=== PATIENT | female | born 2000 | race African-American/Black ===

== ENCOUNTER → 2022-11-26 | Outpatient (CLI) | payer BC | LOC: LABNPT 15:28 | PROVIDERS: ATTEND Nurse Practitioner Women's Health | DX: O13.9 Gestational [pregnancy-induced] hypertension without significant proteinuria, unspecified trimester (principal); Z3A.00 Weeks of gestation of pregnancy not specified | CPT/HCPCS: 82570; 84156 ==

== ENCOUNTER 2023-03-31 06:15 | Inpatient (IN) | payer BC ==
[2023-03-31] VITALS (40 sets, daily range): BP systolic 113–150; BP diastolic 63–100
[~2023-03-31] VITALS: Ht 162.6 cm; Wt 109.0 kg
--- OUTSIDE RECORDS SUMMARY | 2023-03-31 06:19 | XMS REPORT ---
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 confirmed [id number] ALLERGIES No Known Allergies ENCOUNTERS from 1998 to 2023-02-28 Encounter Location Date Provider Diagnosis [facility] [address] [id number] [place] [address] Feb, INES TOWNSEND Encounter for initia l prescription of contraceptive pills Z30.011 and Screening for STD (sexually transmitted disease) Z11.3 IMMUNIZATIONS Vaccine Route Administration Date Status 1st Dose HRSA MODERNA, COVID -19, 0.5mL Unknown July 15, 2020 Administered 2nd Dose HRSA MODERNA, COVID -19, 0.5mL Unknown August 13, 2020 Administered PRIVATE FLU 23-24 (FLULAVAL) 6MO & UP IM Intramuscular Jan 29, 2023 Administered PRIVATE GARDASIL 9 (HPV) IM Intramuscular Apr 12, 2021 Administered PRIVATE GARDASIL 9 (HPV) IM Intramuscular Mar 13, 2021 Administered SOCIAL HISTORY Sex Assigned At : Social History Observation Description Sex Assigned At Unknown Alcohol Screen (Audit-C) Question Answer Notes Did you have a drink containing alcohol in the p ast year? No Points 0 Interpretation Negative PHQ2 Question Answer Notes In the last 2 weeks, how oft en have you had little interest or pleasure in doing things? Not at all In the last 2 weeks, how oft en have you been feeling down, depressed, or hopeless? Not at all Total PHQ2 Score 0 Tobacco use other than smoking: Question Answer Notes Are you an other tobacco user? No REASON FOR REFERRAL No Information VITAL SIGNS Height 64.25 in Feb, Weight 191.7 lbs Feb, Weight-kg 86.95 kg Feb, Temperature 97.3 degrees Fahrenheit Feb, Heart Rate 98 bpm Feb, Respiratory Rate 18 bpm Feb, Oximetry 99 % Feb, BMI 32.65 kg/m2 Feb, Blood pressure systolic 120 mmHg Feb, Blood pressure diastolic 66 mmHg Feb, MEDICATIONS Medication SIG (Take, Route, Fr equency, Duration) Notes Start Date End Date Status Amoxicillin 875 MG 1 tablet Orally Twic e a day for 7 days Dec, Active metroNIDAZOLE 500 MG 1 tablet Orally Twi ce a day for 7 days Dec, Active REASON FOR VISIT full panel std check, She is not having any symptoms, just wants to be checked--NGUYỄN baca MEDICAL (GENERAL) HISTORY Type Description Date Medical History Unspecified asthma Medical History hypoglycemic Surgical History tonsillectomy and adenoidectomy 2019 Surgical History dental surgeries Hospitalization History pneumonia 7 MENTAL STATUS No Information ASSESSMENTS Encounter Date Diagnosis Assessment Notes Treatment Notes Treatment Clinical Notes Feb, Screening for STD (sexually transmitted disease) (ICD-10 - Z11.3) Recommend using condoms to prevent spread of STDs Feb, Encounter for initial prescription of contraceptive pills (ICD-10 - Z30.011) Discussed benefits and risks of combined estrogen/progestero ne contraceptive including but not limited to blood clot, increased blood pressure, moodiness, breast tenderness, nausea, irregular bleeding. Discussed the only 100% effective method of contraception is abstinence. Discussed that control does not protect against STI and the only 100% effective STI prevention is abstinence, if sexually active outside of stable one partner relationship, recommend condom use. Use backup control, such as a condom, or don't have intercourse for 7 days after you start your pills. Take your pills every day, at about the same time of day. To help yourself do this, try to take them when you do something else every day, such as brushing your teeth. What if you forget to take a pill? Always read the label for specific instructions, or call your doctor. Here are some basic guidelines: If you miss 1 hormone pill, take it as soon as you remember. Ask your doctor if you may need to use a backup control method, such as a condom, or not have intercourse. If you miss 2 or more hormone pills, take one as soon as you remember you forgot them. Then read the pill label or call your doctor about instructions on how to take your missed pills. Use a backup method of control or don't have intercourse for 7 days. is more likely if you miss more than 1 pill. If you had intercourse, you can use emergency contraception to help prevent . You can also get emergency contraceptive pills without a prescription at most drugstores. What else do you need to know? The pill can have side effects. You may have very light or skipped periods. You may have bleeding between periods (spotting). This usually decreases after 3 to 4 months. You may have mood changes, less interest in sex, or weight gain. The pill may reduce acne, heavy bleeding and cramping, and symptoms of premenstrual syndrome. Check with your doctor before you use any other medicines, including oqjw-ags-hufefor medicines, vitamins, herbal products, and supplements. control hormones may not work as well to prevent when combined with other medicines. The pill doesn't protect against sexually transmitted infection (STIs), such as herpes or HIV/AIDS. If you're not sure whether your sex partner might have an STI, use a condom to protect against disease., Combination Control Pills: Care Instructions material was published PLAN OF TREATMENT Medication Medication Name Sig Start Date Stop Date Amoxicillin 875 MG 1 tablet Orally Twice a day for 7 d ays Dec, metroNIDAZOLE 500 MG 1 tablet Orally Twice a day for 7 days Dec, Treatment Notes Assessment Notes Clinical Notes Screening for STD (sexually transmitted disease) Recommend using condoms to prevent spread of STDs Encounter for initial prescr iption of contraceptive pills Discussed benefits and risks of combined estrogen/progesterone contraceptive including but not limited to blood clot, increased blood pressure, moodiness, breast tenderness, nausea, irregular bleeding. Discussed the only 100% effective method of contraception is abstinence. Discussed that control does not protect against STI and the only 100% effective STI prevention is abstinence, if sexually active outside of stable one partner relationship, recommend condom use. Use backup control, such as a condom, or don't have intercourse for 7 days after you start your pills. Take your pills every day, at about the same time of day. To help yourself do this, try to take them when you do something else every day, such as brushing your teeth. What if you forget to take a pill? Always read the label for specific instructions, or call your doctor. Here are some basic guidelines: If you miss 1 hormone pill, take it as soon as you remember. Ask your doctor if you may need to use a backup control method, such as a condom, or not have intercourse. If you miss 2 or more hormone pills, take one as soon as you remember you forgot them. Then read the pill label or call your doctor about instructions on how to take your missed pills. Use a backup method of control or don't have intercourse for 7 days. is more likely if you miss more than 1 pill. If you had intercourse, you can use emergency contraception to help prevent . You can also get emergency contraceptive pills without a prescription at most drugstores. What else do you need to know? The pill can have side effects. You may have very light or skipped periods. You may have bleeding between periods (spotting). This usually decreases after 3 to 4 months. You may have mood changes, less interest in sex, or weight gain. The pill may reduce acne, heavy bleeding and cramping, and symptoms of premenstrual syndrome. Check with your doctor before you use any other medicines, including [id number]-[id number] medicines, vitamins, herbal products, and supplements. control hormones may not work as well to prevent when combined with other medicines. The pill doesn't protect against sexually transmitted infection (STIs), such as herpes or HIV/AIDS. If you're not sure whether your sex partner might have an STI, use a condom to protect against disease., Combination Control Pills: Care Instructions material was published Next Appt Details 1 Year Reason:BC f/u Follow Up:1 YearBC f/u Insurance Providers Payer Name Payer Address Payer Phone Insured Name Patient Relationship to Insured Coverage Start Date Coverage End Date Subscriber Number Group Number [place] [address] [place] [id number] ice Natural Child - Insured has Financial Responsibility 2 [id number] MEDICATIONS ADMINISTERED Medication Instructions Date of Administration Dosag e DEPO PROVERA (150 MG/ML) Sep, 150 mg DEPO PROVERA (150 MG/ML) Mar, 150 mg DEPO PROVERA (150 MG/ML) Sep, 150 mg DEPO PROVERA (150 MG/ML) Jul, 150 mg DEPO PROVERA (150 MG/ML) Dec, 150 mg DEPO PROVERA (150 MG/ML) Jun, 150 mg DEPO PROVERA (150 MG/ML) Dec, 150 mg DEPO PROVERA (150 MG/ML) Mar, 150 mg DEPO PROVERA (150 MG/ML) 14 Jun, 2018 150 mg DEPO PROVERA (150 MG/ML) 10 Sep, 2019 150 mg DEPO PROVERA (150 MG/ML) 11 Jun, 2019 150 mg DEPO PROVERA (150 MG/ML) 14 Oct, 2015 150 mg DEPO PROVERA (150 MG/ML) 15 Jul, 2015 150 mg DEPO PROVERA (150 MG/ML) Sep, 150 mg DEPO PROVERA (150 MG/ML) Dec, 150 mg DEPO PROVERA (150 MG/ML) Apr, 150 mg DEPO PROVERA (150 MG/ML) Jan, 150 mg
--- OUTSIDE RECORDS SUMMARY | 2023-03-31 06:19 | XMS REPORT ---
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 No REASON FOR REFERRAL No Information MEDICATIONS Medication SIG (Take, Route, Fr equency, Duration) Notes Start Date End Date Status Amoxicillin 875 MG 1 tablet Orally Twic e a day for 7 days Dec, Active metroNIDAZOLE 500 MG 1 tablet Orally Twi ce a day for 7 days Dec, Active REASON FOR VISIT Lab MEDICAL (GENERAL) HISTORY Type Description Date Medical History Unspecified asthma Medical History hypoglycemic Surgical History tonsillectomy and adenoidectomy 2018 Surgical History dental surgeries Hospitalization History pneumonia MENTAL STATUS No Information PLAN OF TREATMENT Medication Medication Name Sig Start Date Stop Date Amoxicillin 875 MG 1 tablet Orally Twice a day for 7 d ays Dec, metroNIDAZOLE 500 MG 1 tablet Orally Twice a day for 7 days Dec, Insurance Providers Payer Name Payer Address Payer Phone Insured Name Patient Relationship to Insured Coverage Start Date Coverage End Date Subscriber Number Group Number [place] [address] [facility] [id number] Masood Avery Child - Insured has Financial Responsibility 2 [id number] MEDICATIONS ADMINISTERED Medication Instructions Date of Administration Dosag e DEPO PROVERA (150 MG/ML) 10 Jan, 2016 150 mg DEPO PROVERA (150 MG/ML) Jul, 150 mg DEPO PROVERA (150 MG/ML) Dec, 150 mg DEPO PROVERA (150 MG/ML) Mar, 150 mg DEPO PROVERA (150 MG/ML) 10 Sep, 2019 150 mg DEPO PROVERA (150 MG/ML) 14 Oct, 2015 150 mg DEPO PROVERA (150 MG/ML) Mar, 150 mg DEPO PROVERA (150 MG/ML) 13 Dec, 2018 150 mg DEPO PROVERA (150 MG/ML) 11 Jun, 2019 150 mg DEPO PROVERA (150 MG/ML) 14 Jun, 2018 150 mg DEPO PROVERA (150 MG/ML) Sep, 150 mg DEPO PROVERA (150 MG/ML) Sep, 150 mg DEPO PROVERA (150 MG/ML) Dec, 150 mg DEPO PROVERA (150 MG/ML) Apr, 150 mg DEPO PROVERA (150 MG/ML) Sep, 150 mg DEPO PROVERA (150 MG/ML) Jun, 150 mg DEPO PROVERA (150 MG/ML) Jul, 150 mg
--- OUTSIDE RECORDS SUMMARY | 2023-03-31 06:19 | XMS REPORT ---
Author Author [facility] ter of [facility] ter of [facility] Address Unknown Phone Unavailable Care Team Providers Care X [employer] Wireman Name Role Phone INES TOWNSEND Unavailable PROBLEMS Type Condition ICD9-CM Code [id number] Code Onset Dates Condition Status W/U Status Risk SNOMED Code Notes Problem Mild intermittent reactive airway disease without complication J45.20 confirmed [id number] Problem Hypoglycemia E16.2 confirmed 3483895 03 Problem Vaginal odor N94.89 confirmed 797311 006 Problem Exercise-aguilar galina asthma J45.990 confirmed [id number] ALLERGIES No Known Allergies ENCOUNTERS from 1998 to 2023-03-13 Encounter Location Date [facility] [id number] [place] [address] 16 Feb, 2021 INES TOWNSEND IMMUNIZATIONS Vaccine Route Administration Date Status PRIVATE GARDASIL 9 (HPV) IM Intramuscular Mar 13, 2021 Administered PRIVATE GARDASIL 9 (HPV) IM Intramuscular Apr 12, 2021 Administered PRIVATE FLU 23-24 (FLULAVAL) 6MO & UP IM Intramuscular Jan 29, 2023 Administered 2nd Dose HRSA MODERNA, COVID -19, 0.5mL Unknown August 13, 2020 Administered 1st Dose HRSA MODERNA, COVID -19, 0.5mL Unknown July 15, 2020 Administered SOCIAL HISTORY Sex Assigned At : [...] VITAL SIGNS Height 64.25 in Feb, Weight 187.1 lbs Feb, Weight-kg 84.87 kg Feb, Temperature 97.7 degrees Fahrenheit Feb, Heart Rate 84 bpm Feb, Respiratory Rate 18 bpm Feb, Oximetry 99 % Feb, BMI 31.86 kg/m2 Feb, Blood pressure systolic 120 mmHg Feb, Blood pressure diastolic 88 mmHg Feb, MEDICATIONS Medication SIG (Take, Route, Fr equency, Duration) Notes Start Date End Date Status Amoxicillin 875 MG 1 tablet Orally Twic e a day for 7 days Dec, Active metroNIDAZOLE 500 MG 1 tablet Orally Twi ce a day for 7 days Dec, Active REASON FOR VISIT vaginal pain over the weekend but it has gone away, questions about HSV 1--NGUYỄN baca MEDICAL (GENERAL) HISTORY Type Description Date Medical History Unspecified asthma Medical History hypoglycemic Surgical History tonsillectomy and adenoidectomy 2019 Surgical History dental surgeries Hospitalization History pneumonia 7 MENTAL STATUS No Information ASSESSMENTS Encounter Date Diagnosis Assessment Notes Treatment Notes Treatment Clinical Notes Feb, Other Since she is no t having any current sx, recommend she schedule a well woman exam with pap She will call & schedule when she is able, with with me or in [place], [facility] Visit, Ages 18 to 50: Care Instructions material was published PLAN OF TREATMENT Medication Medication Name Sig Start Date Stop Date Amoxicillin 875 MG 1 tablet Orally Twice a day for 7 d ays Dec, metroNIDAZOLE 500 MG 1 tablet Orally Twice a day for 7 days Dec, Next Appt Details prn, well woman exam Reason: Insurance Providers Payer Name Payer Address Payer Phone Insured Name Patient Relationship to Insured Coverage Start Date Coverage End Date Subscriber Number Group Number [place] OF [place] [address] [facility] [id number] Green,Masood ice Natural Child - Insured has Financial Responsibility 2 [id number] MEDICATIONS ADMINISTERED Medication Instructions Date of Administration Dosag e DEPO PROVERA (150 MG/ML) Jun, 150 mg DEPO PROVERA (150 MG/ML) Sep, 150 mg DEPO PROVERA (150 MG/ML) 14 Dec, 2017 150 mg DEPO PROVERA (150 MG/ML) 20 Sep, 2017 150 mg DEPO PROVERA (150 MG/ML) 10 Sep, 2019 150 mg DEPO PROVERA (150 MG/ML) 10 Jan, 2016 150 mg DEPO PROVERA (150 MG/ML) 14 Oct, 2015 150 mg DEPO PROVERA (150 MG/ML) Apr, 150 mg DEPO PROVERA (150 MG/ML) 15 Jul, 2015 150 mg DEPO PROVERA (150 MG/ML) 29 Sep, 2016 150 mg DEPO PROVERA (150 MG/ML) 10 Jul, 2016 150 mg DEPO PROVERA (150 MG/ML) Mar, 150 mg DEPO PROVERA (150 MG/ML) Dec, 150 mg DEPO PROVERA (150 MG/ML) Mar, 150 mg DEPO PROVERA (150 MG/ML) 14 Jun, 2018 150 mg DEPO PROVERA (150 MG/ML) Jun, 150 mg DEPO PROVERA (150 MG/ML) Dec, 150 mg
--- OUTSIDE RECORDS SUMMARY | 2023-03-31 06:19 | XMS REPORT ---
Author Author [facility] ter of [facility] ter of [facility] Address Unknown Phone Unavailable Care Team Providers Care Photo Print Specialist Name Role Phone ROSEMARY RIOS Unavailable PROBLEMS Type Condition ICD9-CM Code EAI32-CA Code Onset Dates Condition Status W/U Status Risk SNOMED Code Notes Problem Mild intermittent reactive airway disease without complication J45.20 confirmed [id number] Problem Hypoglycemia E16.2 confirmed 9685900 03 Problem Vaginal odor N94.89 confirmed 363288 006 Problem Exercise-aguilar galina asthma J45.990 confirmed [id number] ALLERGIES No Known Allergies ENCOUNTERS from 1998 to 2023-01-23 Encounter Location Date Provider Diagnosis [facility] [address] [facility] [id number] [place] [address] Jan, ROSEMARY RIOS IMMUNIZATIONS Vaccine Route Administration Date Status PRIVATE GARDASIL 9 (HPV) IM Intramuscular Mar 13, 2021 Administered PRIVATE GARDASIL 9 (HPV) IM Intramuscular Apr 12, 2021 Administered 1st Dose HRSA MODERNA, COVID -19, 0.5mL Unknown July 15, 2020 Administered 2nd Dose HRSA MODERNA, COVID -19, 0.5mL Unknown August 13, 2020 Administered SOCIAL HISTORY Sex Assigned At [...] 7 days Dec, Active REASON FOR VISIT Update Demographics - Personal Info MEDICAL (GENERAL) HISTORY Type Description Date Medical History Unspecified asthma Medical History hypoglycemic Surgical History tonsillectomy and adenoidectomy 2018 Surgical History dental surgeries Hospitalization History pneumonia 7 MENTAL STATUS No Information PLAN OF TREATMENT [...] Group Number [place] [address] [facility] [id number] [phone] [facility] Natural Child - Insured has Financial Responsibility 2 [id number] MEDICATIONS ADMINISTERED Medication Instructions Date of Administration Dosag e DEPO PROVERA (150 MG/ML) Jun, 150 mg DEPO PROVERA (150 MG/ML) 13 Dec, 2018 150 mg DEPO PROVERA (150 MG/ML) Jun, 150 mg DEPO PROVERA (150 MG/ML) 14 Dec, 2017 150 mg DEPO PROVERA (150 MG/ML) Jul, 150 mg DEPO PROVERA (150 MG/ML) Sep, 150 mg DEPO PROVERA (150 MG/ML) 10 Jan, 2016 150 mg DEPO PROVERA (150 MG/ML) Apr, 150 mg DEPO PROVERA (150 MG/ML) 14 Oct, 2015 150 mg DEPO PROVERA (150 MG/ML) Dec, 150 mg DEPO PROVERA (150 MG/ML) Jul, 150 mg DEPO PROVERA (150 MG/ML) Jun, 150 mg DEPO PROVERA (150 MG/ML) Mar, 150 mg DEPO PROVERA (150 MG/ML) Mar, 150 mg DEPO PROVERA (150 MG/ML) Sep, 150 mg DEPO PROVERA (150 MG/ML) Sep, 150 mg DEPO PROVERA (150 MG/ML) Sep, 150 mg
--- OUTSIDE RECORDS SUMMARY | 2023-03-31 06:19 | XMS REPORT ---
Author Author [facility] ter of [facility] ter of [facility] Address Unknown Phone Unavailable Care Team Providers Care Repatcher Name Role Phone ROSEMARY RIOS Unavailable PROBLEMS Type Condition ICD9-CM Code [id number] Code Onset Dates Condition Status W/U Status Risk SNOMED Code Notes Problem Mild intermittent reactive airway disease without complication J45.20 confirmed 257029545 Problem Hypoglycemia E16.2 confirmed [id number] 03 Problem Vaginal odor N94.89 confirmed 706133 006 Problem Exercise-aguilar galina asthma J45.990 confirmed [id number] ALLERGIES No Known Allergies ENCOUNTERS from 1998 to 2023-01-29 Encounter Location Date Provider Diagnosis [facility] [address] [facility] [id number] [address] Jan, ROSEMARY RIOS Acute vaginitis N76.0 ; STD exposure Z20.2 and Other specified bacterial agents as the cause of diseases classified elsewhere B96.89 IMMUNIZATIONS Vaccine Route Administration Date Status 2nd Dose HRSA MODERNA, COVID -19, 0.5mL [...] No Information VITAL SIGNS Height 64.25 in Jan, Weight 191.9 lbs Jan, Weight-kg 87.04 kg Jan, Temperature 97 degrees Fahrenheit Jan, Heart Rate 84 bpm Jan, Respiratory Rate 18 bpm Jan, Oximetry 99 % Jan, BMI 32.68 kg/m2 Jan, Blood pressure systolic 116 mmHg Jan, Blood pressure diastolic 70 mmHg Jan, MEDICATIONS Medication SIG (Take, Route, Fr equency, Duration) Notes Start Date End Date Status Amoxicillin 875 MG 1 tablet Orally Twic e a day for 7 days Dec, Active metroNIDAZOLE 500 MG 1 tablet Orally Twi ce a day for 7 days Dec, Active REASON FOR VISIT STD check., Meds verified verbally. MEDICAL (GENERAL) HISTORY Type Description Date Medical History Unspecified asthma Medical History hypoglycemic Surgical History tonsillectomy and adenoidectomy 2019 Surgical History dental surgeries Hospitalization History pneumonia 7 MENTAL STATUS No Information ASSESSMENTS Encounter Date Diagnosis Assessment Notes Treatment Notes Treatment Clinical Notes Jan, STD exposure (ICD-10 - Z20.2) Exposure to Sexually Transmitted Infections: Care Instructions material was published Jan, Acute vaginitis (ICD-10 - N76.0) flagyl for BV will call with other results abstinence until resulted and at least 7 days after treatment rest fluids f/u if no improvement in 3-4 days , Vaginitis: Care Instructions material was published, Bacterial Vaginosis: Care Instructions material was published Jan, Other specified bacterial agents as the cause of diseases classified elsewhere (ICD-10 - B96.89) Jan, Other Complete medication(s) as prescribed. Discussed safe sex. Remain abstinent from intercourse and/or use protection for 7 days following completion of treatment regimen. Notify all recent sexual partners to seek treatment as indicated. Follow up with any persistent symptoms. Labs were performed today for STD screening/dx as ordered. , metronidazole (oral/injection) material was published PLAN OF TREATMENT Medication Medication Name Sig Start Date Stop Date Amoxicillin 875 MG 1 tablet Orally Twice a day for 7 d ays Dec, metroNIDAZOLE 500 MG 1 tablet Orally Twice a day for 7 days Dec, Treatment Notes Assessment Notes Clinical Notes STD exposure Exposure to Sexually Transmitted Infections: Care Instructions material was published Acute vaginitis flagyl for BV will call with other results abstinence until resulted and at least 7 days after treatment rest fluids f/u if no improvement in 3-4 days , Vaginitis: Care Instructions material was published, Bacterial Vaginosis: Care Instructions material was published Next Appt Details pending testing as needed Re ason:post exposure Follow Up:pending testing as neededpost exposure Insurance Providers Payer Name Payer Address Payer Phone Insured Name Patient Relationship to Insured Coverage Start Date Coverage End Date Subscriber Number Group Number [place] [address] [facility] [id number] [facility] Child - Insured has Financial Responsibility 2 [id number] MEDICATIONS ADMINISTERED Medication Instructions Date of Administration Dosag e DEPO PROVERA (150 MG/ML) Jan, 150 mg DEPO PROVERA (150 MG/ML) Jul, 150 mg DEPO PROVERA (150 MG/ML) Dec, 150 mg DEPO PROVERA (150 MG/ML) Mar, 150 mg DEPO PROVERA (150 MG/ML) Sep, 150 mg DEPO PROVERA (150 MG/ML) Oct, 150 mg DEPO PROVERA (150 MG/ML) Mar, 150 mg DEPO PROVERA (150 MG/ML) Dec, 150 mg DEPO PROVERA (150 MG/ML) Jun, 150 mg DEPO PROVERA (150 MG/ML) Jun, 150 mg DEPO PROVERA (150 MG/ML) Sep, 150 mg DEPO PROVERA (150 MG/ML) 20 Sep, 2017 150 mg DEPO PROVERA (150 MG/ML) Dec, 150 mg DEPO PROVERA (150 MG/ML) Apr, 150 mg DEPO PROVERA (150 MG/ML) Sep, 150 mg DEPO PROVERA (150 MG/ML) Jun, 150 mg DEPO PROVERA (150 MG/ML) Jul, 150 mg
--- OUTSIDE RECORDS SUMMARY | 2023-03-31 06:19 | XMS REPORT ---
Author Author [facility] ter of [facility] ter of [facility] Address Unknown Phone Unavailable Care Team Providers Care Photo Cartographer Name Role Phone INES TOWNSEND Unavailable PROBLEMS Type Condition ICD9-CM Code UHR24-GA Code Onset Dates Condition Status W/U Status Risk SNOMED Code Notes Problem Mild intermittent reactive airway disease without complication J45.20 confirmed [id number] Problem Hypoglycemia E16.2 confirmed 7628514 03 Problem Vaginal odor N94.89 confirmed 024318 006 Problem Exercise-aguilar galina asthma J45.990 confirmed [id number] ALLERGIES No Known Allergies ENCOUNTERS from 1998 to 2022-11-21 Encounter Location Date Provider Diagnosis [facility] [address] [id number] [place] [address] Nov, INES TOWNSEND Visit for TB skin te st Z11.1 IMMUNIZATIONS Vaccine Route Administration Date Status PRIVATE [...] a day for 7 days Dec, Active PROCEDURES from 1998 to 2022-11-21 Procedure Date Ordered Date Performed Result Body Sit e TB INTRADERMAL 2020-12-11 2020-12-11 N/A REASON FOR VISIT TB skin test, HBastian 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 instructed not to cover or apply lotion to injection site. Also instructed pt. to avoid scratching or rubbing area. Pt. was instructed to return to the clinic in 48-72 hours to have TB skin test read. Informed pt. that if they do not return in appropriate timeframe, they will need to have TB skin test re-administerd in 1-2 weeks. Voiced understanding. PLAN OF TREATMENT Medication Medication Name Sig Start Date Stop Date Amoxicillin 875 MG 1 tablet Orally Twice a day for 7 d ays Dec, metroNIDAZOLE 500 MG 1 tablet Orally Twice a day for 7 days Dec, Treatment Notes Assessment Notes Clinical Notes Visit for TB skin test Pt. instructed no t to cover or apply lotion to injection site. Also instructed pt. to avoid scratching or rubbing area. Pt. was instructed to return to the clinic in 48-72 hours to have TB skin test read. Informed pt. that if they do not return in appropriate timeframe, they will need to have TB skin test re-administerd in 1-2 weeks. Voiced understanding. Next Appt Details 48-72 hours Reason:TB read Follow Up:48-72 hoursTB read Insurance Providers Payer Name Payer Address Payer Phone Insured Name Patient Relationship to Insured Coverage Start Date Coverage End Date Subscriber Number Group Number [place] [address] [place] [id number] efe Lopez Child - Insured has Financial Responsibility 2 [id number] MEDICATIONS ADMINISTERED Medication Instructions Date of Administration Dosag e DEPO PROVERA (150 MG/ML) 10 Jan, 2016 150 mg DEPO PROVERA (150 MG/ML) Jul, 150 mg DEPO PROVERA (150 MG/ML) 14 Jun, 2018 150 mg DEPO PROVERA (150 MG/ML) 11 Jun, 2019 150 mg DEPO PROVERA (150 MG/ML) 10 Sep, 2019 150 mg DEPO PROVERA (150 MG/ML) 14 Oct, 2015 150 mg DEPO PROVERA (150 MG/ML) Mar, 150 mg DEPO PROVERA (150 MG/ML) Jun, 150 mg DEPO PROVERA (150 MG/ML) Sep, 150 mg DEPO PROVERA (150 MG/ML) Dec, 150 mg DEPO PROVERA (150 MG/ML) 20 Sep, 2017 150 mg DEPO PROVERA (150 MG/ML) 22 Dec, 2016 150 mg DEPO PROVERA (150 MG/ML) Mar, 150 mg DEPO PROVERA (150 MG/ML) 09 Apr, 2016 150 mg DEPO PROVERA (150 MG/ML) 14 Dec, 2017 150 mg DEPO PROVERA (150 MG/ML) 13 Sep, 2018 150 mg DEPO PROVERA (150 MG/ML) 15 Jul, 2015 150 mg
--- OUTSIDE RECORDS SUMMARY | 2023-03-31 06:19 | XMS REPORT ---
Author Author [facility] ter of [facility] ter of [facility] Address Unknown Phone Unavailable Care Team Providers Care Assembler Tubing Name Role Phone PAIGE AGUREO Unavailable PROBLEMS Type Condition ICD9-CM Code [id number] Code Onset Dates Condition Status W/U Status Risk SNOMED Code Notes Problem Mild intermittent reactive airway disease without complication J45.20 confirmed [id number] Problem Hypoglycemia E16.2 confirmed 2521464 03 Problem Vaginal odor N94.89 confirmed 578368 006 Problem Exercise-aguilar galina asthma J45.990 confirmed [id number] ALLERGIES No Known Allergies ENCOUNTERS from 1998 to 2023-03-17 Encounter Location Date Provider Diagnosis [facility] [place] [address] [facility] [id number] [address] Feb, PAIGE AGUERO Well woman exam with routine gynecological exam Z01.419 and Encounter for immunization Z23 IMMUNIZATIONS Vaccine Route Administration Date Status PRIVATE [...] VITAL SIGNS Height 64.25 in Feb, Weight 187 lbs Feb, Weight-kg 84.82 kg Feb, Temperature 96.9 degrees Fahrenheit Feb, Heart Rate 81 bpm Feb, Respiratory Rate 20 bpm Feb, Oximetry 98 % Feb, BMI 31.85 kg/m2 Feb, Blood pressure systolic 98 mmHg Feb, Blood pressure diastolic 70 mmHg Feb, MEDICATIONS Medication SIG (Take, Route, Fr equency, Duration) Notes Start Date End Date Status Amoxicillin 875 MG 1 tablet Orally Twic e a day for 7 days Dec, Active metroNIDAZOLE 500 MG 1 tablet Orally Twi ce a day for 7 days Dec, Active REASON FOR VISIT Annual physical (female)- was given sprintec in february but has not taken it yet. 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 - Well woman exam completed today with your pap smear, will call with your results - Continue daily exercise and healthy diet - Encourage at least 5-6 servings of fruits and vegetables daily - Encourage at least 3-4 servings of calcium per day for bone health - No need to change routine cancer screening due to family history, Well Visit, Ages 18 to 50: Care Instructions material was published Feb, Encounter for immunization (ICD-10 - Z23) Feb, Other I recommend you download the [employer] melina or log on to the [employer] Patient Portal. Accessing the melina or the portal will give you more access to your personal health information (such as lab results, appointment information, etc) and will allow you to actively participate in your healthcare. PLAN OF TREATMENT Medication Medication Name Sig Start Date Stop Date Amoxicillin 875 MG 1 tablet Orally Twice a day for 7 d ays 15 Dec, 2021 metroNIDAZOLE 500 MG 1 tablet Orally Twice a day for 7 days 06 Dec, 2021 Treatment Notes Assessment Notes Clinical Notes Well woman exam with routine gynecological exam Negative for , BV, & trichomonas. - Well woman exam completed today with your pap smear, will call with your results - Continue daily exercise and healthy diet - Encourage at least 5-6 servings of fruits and vegetables daily - Encourage at least 3-4 servings of calcium per day for bone health - No need to change routine cancer screening due to family history, Well Visit, Ages 18 to 50: Care Instructions material was published Pending Tests Test Name Order Date PAP WITH HPV (FOLLOW UP) [facility] (03060 ) 2021-03-13 Next Appt Details 1 Year Reason: Insurance Providers Payer Name Payer Address Payer Phone Insured Name Patient Relationship to Insured Coverage Start Date Coverage End Date Subscriber Number Group Number [place] [address] [facility] [phone] ice Natural Child - Insured has Financial Responsibility 2 [id number] MEDICATIONS ADMINISTERED Medication Instructions Date of Administration Dosag e DEPO PROVERA (150 MG/ML) Mar, 150 mg DEPO PROVERA (150 MG/ML) Jun, 150 mg DEPO PROVERA (150 MG/ML) Dec, 150 mg DEPO PROVERA (150 MG/ML) Sep, 150 mg DEPO PROVERA (150 MG/ML) Dec, 150 mg DEPO PROVERA (150 MG/ML) Dec, 150 mg DEPO PROVERA (150 MG/ML) Sep, 150 mg DEPO PROVERA (150 MG/ML) Sep, 150 mg DEPO PROVERA (150 MG/ML) Jun, 150 mg DEPO PROVERA (150 MG/ML) Oct, 150 mg DEPO PROVERA (150 MG/ML) Jul, 150 mg DEPO PROVERA (150 MG/ML) Apr, 150 mg DEPO PROVERA (150 MG/ML) 10 Jan, 2016 150 mg DEPO PROVERA (150 MG/ML) 11 Jun, 2019 150 mg DEPO PROVERA (150 MG/ML) 21 Mar, 2017 150 mg DEPO PROVERA (150 MG/ML) 10 Jul, 2016 150 mg DEPO PROVERA (150 MG/ML) 20 Sep, 2017 150 mg
--- OUTSIDE RECORDS SUMMARY | 2023-03-31 06:19 | XMS REPORT ---
Author Author [facility] ter of [facility] ter of [facility] Address Unknown Phone Unavailable Care Team Providers Care Baseball Winder Name Role Phone CARY INES Unavailable PROBLEMS Type Condition ICD9-CM Code BAS65-SS Code Onset Dates Condition Status W/U Status Risk SNOMED Code Notes Problem Mild intermittent reactive airway disease without complication J45.20 confirmed [id number] Problem Hypoglycemia E16.2 confirmed 0153171 03 Problem Vaginal odor N94.89 confirmed 204975 006 Problem Exercise-aguilar galina asthma J45.990 confirmed [id number] ALLERGIES No Known Allergies ENCOUNTERS from 1998 to 2023-03-10 Encounter Location Date Provider Diagnosis [facility] [address] [facility] [id number] [place] [address] 16 Feb, 2021 INES TOWNSEND IMMUNIZATIONS Vaccine [...] UP IM Intramuscular Jan 29, 2023 Administered SOCIAL HISTORY Sex Assigned At : [...] 7 days Dec, Active REASON FOR VISIT *Lab Results MEDICAL (GENERAL) HISTORY Type Description Date Medical [...] Group Number [place] [address] [facility] [id number] [facility] Child - Insured has Financial Responsibility 2 [id number] MEDICATIONS ADMINISTERED Medication Instructions Date of Administration Dosag e DEPO PROVERA (150 MG/ML) Apr, 150 mg DEPO PROVERA (150 MG/ML) Jul, 150 mg DEPO PROVERA (150 MG/ML) Jun, 150 mg DEPO PROVERA (150 MG/ML) Dec, 150 mg DEPO PROVERA (150 MG/ML) Jun, 150 mg DEPO PROVERA (150 MG/ML) 10 Jan, 2016 150 mg DEPO PROVERA (150 MG/ML) Mar, 150 mg DEPO PROVERA (150 MG/ML) Mar, 150 mg DEPO PROVERA (150 MG/ML) Sep, 150 mg DEPO PROVERA (150 MG/ML) 10 Jul, 2016 150 mg DEPO PROVERA (150 MG/ML) Sep, 150 mg DEPO PROVERA (150 MG/ML) Jun, 150 mg DEPO PROVERA (150 MG/ML) 29 Sep, 2016 150 mg DEPO PROVERA (150 MG/ML) Dec, 150 mg DEPO PROVERA (150 MG/ML) Dec, 150 mg DEPO PROVERA (150 MG/ML) Sep, 150 mg DEPO PROVERA (150 MG/ML) 14 Oct, 2015 150 mg
[2023-03-31] MEDS ORDERED: MINERAL OIL 30 ML UDC TOP PRN (06:30)
[2023-03-31] MEDS ORDERED: D5 LR 1,000 ML IV SOLN 1,000 ML IV SCH (06:30)
[2023-03-31] MEDS ORDERED: AMPICILLIN (IV) 2,000 MG in NS (IVPB) 50 ML 50 ML IV SCH (06:30)
[2023-03-31] MEDS ORDERED: LACTATED RINGERS 1,000 ML 500 ML IV PRN (06:30)
[2023-03-31] MEDS ORDERED: PNV-9 PO (06:33)
[2023-03-31] MEDS ORDERED: ASPI-999 PO (06:33)
[2023-03-31 07:14] LABS: BASOPHILS % (AUTO) 0 % (0-10); EOSINOPHILS # (AUTO) 0.2 10^3/uL (0.0-0.3); EOSINOPHILS % (AUTO) 2 % (0-10); HEMATOCRIT 38 % (35-52); HEMOGLOBIN 12.1 g/dL (11.5-16.0); LYMPHOCYTES # (AUTO) 1.7 10^3/uL (1.0-4.0); LYMPHOCYTES % (AUTO) 18 % (12-44); MEAN CORPUSCULAR HEMOGLOBIN 28 pg (25-34); MEAN CORPUSCULAR HGB CONC 32 g/dL (32-36); MEAN CORPUSCULAR VOLUME 87 fL (80-99); MEAN PLATELET VOLUME 11.1 fL (9.0-12.2); MONOCYTES # (AUTO) 0.9 10^3/uL (0.0-1.0); MONOCYTES % (AUTO) 9 % (0-12); NEUTROPHILS # (AUTO) 6.7 10^3/uL (1.8-7.8); NEUTROPHILS % (AUTO) 71 % (42-75); PLATELET COUNT 193 10^3/uL (130-400); WHITE BLOOD COUNT 9.5 10^3/uL (4.3-11.0)
--- NOTE | 2023-03-31 07:45 | History & Physical-OB ---
OB - Chief Complaint & HPI Date/Time Date of Admission: Date of Admission: Mar 31, 2023 at 06:15 Date seen by a Provider: Mar 31, 2023 Time Seen by a Provider: 07:45 Chief Complaint/History OB-Reason for Admission/Chief: Induction of Labor Hx : 1 Hx Para: 0 Expected Date of Delivery: Mar 29, 2023 Gestational Age in Weeks: 40 Gestational Age in Days: 2 Admission Nurse Assessment Rev: Yes History of Labs B pos Antibody neg RI RPR NR HBsAg NR HIV NR GC neg GBS pos Allergies and Home Medications Allergies Coded Allergies: hydrocodone (Verified Allergy, Mild, 03/31/23) Patient Home Medication List Home Medication List Reviewed: Yes Aspirin (Aspirin) 81 Mg Tab.chew, 81 MG PO, (Reported) Entered as Reported by: PAWEL GALLO on 03/31/23632 Last Action: New Order Pnv 119/Iron Fum/Folic Acid ( 19 Tablet) 29 Mg Iron-1 Mg Tablet, 1 EACH PO, (Reported) Entered as Reported by: PAWEL GALLO on 03/31/23632 Last Action: New Order OB - History Hx of Present Care: Yes Ultrasounds: Normal mid trimester US Obstetrical Complications: None Medical Complications: None Patient Past Medical History nc OB - Admission Exam Physical Exam HEENT: NCAT Heart: Rhythm Normal Lungs: Clear Abdomen: Gravid Extremities: Normal Reflexes: Normal Cervical Dilatation: 3cm Effacement: 75% Station: -1 Membranes: Intact Heart Rate: 130's Accelerations: Accelerations Present Decelerations: No Decelerations Short Term Variability: Present Fdc Variability: Average (6-25) Contractions on Admission: 6-10 Minutes Apart Intensity: Mild Mcgovern Scoring Tool (Modified) Dilation (cm): 3-4cm (2) Effacement (%): 51-79% (2) Descent/Station: -1,0 (2) Cervix Consistency: Soft (2) Cervix Position: Anterior (2) Mcgovern Score: 9 Labs Laboratory Tests Test 03/31/23 06:50 Range/Units White Blood Count 9.5 4.3-11.0 10^3/uL Red Blood Count 4.33 3.80-5.11 10^6/uL Hemoglobin 12.1 11.5-16.0 g/dL Hematocrit 38 35-52 % Mean Corpuscular Volume 87 80-99 fL Mean Corpuscular Hemoglobin 28 25-34 pg Mean Corpuscular Hemoglobin Concent 32 32-36 g/dL Red Cell Distribution Width 14.3 10.0-14.5 % Platelet Count 193 130-400 10^3/uL Mean Platelet Volume 11.1 9.0-12.2 fL Immature Granulocyte % (Auto) 0 % Neutrophils (%) (Auto) 71 42-75 % Lymphocytes (%) (Auto) 18 12-44 % Monocytes (%) (Auto) 9 0-12 % Eosinophils (%) (Auto) 2 0-10 % Basophils (%) (Auto) 0 0-10 % Neutrophils # (Auto) 6.7 1.8-7.8 10^3/uL Lymphocytes # (Auto) 1.7 1.0-4.0 10^3/uL Monocytes # (Auto) 0.9 0.0-1.0 10^3/uL Eosinophils # (Auto) 0.2 0.0-0.3 10^3/uL Basophils # (Auto) 0.0 0.0-0.1 10^3/uL Immature Granulocyte # (Auto) 0.0 0.0-0.1 10^3/uL OB - Assessment/Plan/Diagnosis Assessment Assessment: induction of labor Admission Dx 22 yo @ 40.2 IOL GBS pos Admission Status: Inpatient Order (span 2 midnights) Reason for Inpatient Admission: IOL at 40.2 Plan Plan: Induction Induction Method: BOLA AU DO Mar 31, 2023 07:45
[2023-03-31] MEDS ORDERED: OXYTOCIN DRIP PRE-MIX 500 ML IV SCH (08:15)
[2023-03-31] MEDS ORDERED: AMPICILLIN (IV) 1,000 MG in NS (IVPB) 50 ML 50 ML IV SCH (10:30)
[2023-03-31] MEDS ORDERED: ONDANSETRON INJECTION 4 MG/2 ML (SDV) IVP PRN (11:45)
[2023-03-31] MEDS ORDERED: fentaNYL 2 mcg/ml BUPIVA 0.125 0 ML ONE (13:29)
[2023-03-31] MEDS ORDERED: BUPIVACAINE 0.25% 10 ML VIAL ONE (13:56)
[2023-03-31] MEDS ORDERED: fentaNYL INJECTION 100 MCG/2 ML VIAL ONE (13:56)
[2023-03-31] MEDS ORDERED: CATHETER FLUSH 10 ML SYR IV SCH ×2 (14:00→22:00)
[2023-03-31] MEDS ORDERED: LIDOCAINE 2% w/EPI 1:200,000 20 ML VIAL ONE (14:11)
[2023-03-31] MEDS: OXYTOCIN DRIP PRE-MIX 500 ML IV SCH ×2 (14:16→14:47)
[2023-03-31] MEDS ORDERED: NALOXONE 0.4 MG/ML 1 ML VIAL IV PRN (14:45)
[2023-03-31] MEDS ORDERED: WITCH HAZEL(TUCKS) 40 EA JAR TOP PRN (14:45)
[2023-03-31] MEDS ORDERED: MEASLES, MUMPS, RUBELLA VACCINE (MMR) SQ ONE (14:45)
[2023-03-31] MEDS ORDERED: BENZOCAINE/MENTHOL (DERMOPLAST) 56 ML CAN TP PRN (14:45)
[2023-03-31] MEDS ORDERED: Tetanus/Diphtheria/Pertussis (Acell) ADULT Vaccine 0.5 ML IM ONE (14:45)
[2023-03-31] MEDS ORDERED: DIBUCAINE 1% OINTMENT 28 GM TUBE TOP PRN (14:45)
--- NOTE | 2023-03-31 14:47 | OB Labor & Delivery Record ---
L&D History Date of Service Date of Service: Mar 31, 2023 History Expected Date of Delivery: Mar 29, 2023 Gestational Age in Weeks: 40 Hx : 1 Hx Para: 0 Complications Events: Routine care Operative Indications (Cesarea: N/A-Vaginal Delivery Intrapartal Events: None L&D Stage1 Stage One Onset of Labor - Date: Mar 31, 2023 Monitors and Tracing Monitor Mode: External Heart Rate: 135 Station: -1 Vital Signs VS - Last 72 Hours, by Label 03/31/23 03/31/23 03/31/23 03/31/23 06:40 07:15 07:30 07:30 Temp 36.2 35.7 35.7 Pulse 100 81 73 73 Resp 18 18 18 18 B/P (MAP) 131/78 (95) 131/68 (89) 127/77 (94) Pulse Ox 99 98 O2 Delivery Room Air Room Air Room Air Room Air 03/31/23 03/31/23 03/31/23 03/31/23 07:45 08:00 08:40 08:45 Pulse 90 86 78 75 Resp 18 18 18 18 B/P (MAP) 123/69 (87) 132/92 (105) 131/75 (93) 130/92 (105) Pulse Ox 99 98 99 O2 Delivery Room Air Room Air Room Air Room Air 03/31/23 03/31/23 03/31/23 03/31/23 09:00 09:15 09:30 09:45 Pulse 81 74 71 77 Resp 18 18 18 18 B/P (MAP) 131/80 (97) 131/80 (97) 137/83 (101) 113/64 (80) O2 Delivery Room Air Room Air Room Air Room Air 03/31/23 03/31/23 03/31/23 03/31/23 10:00 10:15 10:30 10:45 Temp 36.1 Pulse 76 69 71 91 Resp 18 18 18 18 B/P (MAP) 125/73 (90) 121/66 (84) 130/89 (103) 124/83 (97) O2 Delivery Room Air Room Air Room Air Room Air 03/31/23 03/31/23 03/31/23 03/31/23 11:00 11:15 11:30 11:45 Temp 36.0 36.3 Pulse 67 72 75 75 Resp 18 18 18 18 B/P (MAP) 146/76 (99) 144/100 (115) 147/86 (106) 127/79 (95) O2 Delivery Room Air Room Air Room Air Room Air 03/31/23 03/31/23 03/31/23 03/31/23 12:00 12:15 12:30 12:45 Temp 36.4 Pulse 91 76 81 71 Resp 18 18 18 18 B/P (MAP) 132/68 (89) 130/63 (85) 121/81 (94) 126/66 (86) O2 Delivery Room Air Room Air Room Air Room Air 03/31/23 03/31/23 13:00 13:15 Pulse 77 96 Resp 18 18 B/P (MAP) 124/68 (86) 125/90 (102) O2 Delivery Room Air Room Air Rupture of Membranes Amniotic Membrane Rupture Time: 1057 Amniotic Membrane Fluid Desc.: Clear Vaginal Bleeding Description: Normal Show Progress/Notes Patient admitted for IOL for post dates. She received pitocin augmentation and Ampicillin for GBS +. She had AROM performed 4 hrs after first dose, and rapidly progressed afterword to complete and + 3 station without any analgesia. L&D Stage2 Stage Two Stage II Date: Mar 31, 2023 Monitors and Tracing Monitor Mode: External Heart Rate: 135 Monitor Accelerations: Uniform Monitor Decelerations: None Usp Variability: Moderate (11-25) Short Term Variability: Present Position: Right Occiput Anterior Presentation: Vertex Cord Descript/Complications Cord Vessel Description: 3 Vessels Delivery Type Infant Delivery Method: Spontaneous Vaginal Anterior Shoulder: Left Episiotomy/Perineal Laceration Laceraction(s)/Extensions: Yes Episiotomy Description: Right Mediolateral (reparired using 3-0 vicyrl suture) Condition of Infant Delivery 1 minute Comment: 9 5 minute Comment: 9 Notes Live female weight 7lbs 1 oz Condition of Condition of Infant: Living Exam: No Observed Abnormalities Resuscitation Resuscitation: N/A - Spontaneous Resp L&D Stage3 Stage Three Stage III Date: Mar 31, 2023 Pictocin Pitocin Administration mu/min: 10 Pitocin ml/hr: 10 Pitocin Administration Comment: 30 mu wide open after delivery of placenta Placenta Delivery Placenta Delivery: Spontaneous Delivery Summary Summary Estimated blood loss (mL): 250 Attending at delivery: Fenmary alice Bola DO Condition of Delivery Examined: Cervix Examined, Uterus Explored Post Hemorrhage: No Condition of Mother stable Condition of (s) stable BOLA GONZALES DO Mar 31, 2023 14:47
[2023-03-31] MEDS: IBUPROFEN 600 MG TABLET PO SCH ×2 (15:14→20:17)
[2023-03-31] MEDS: DOCUSATE SODIUM 100 MG CAPSULE PO SCH (20:17)
[2023-03-31] MEDS: ACETAMINOPHEN 500 MG TABLET PO PRN (21:41)
[2023-04-01 01:19] VITALS: BP 117/78
[2023-04-01] MEDS: IBUPROFEN 600 MG TABLET PO SCH ×3 (01:19→17:47)
[2023-04-01 04:00] VITALS: BP 135/82
[2023-04-01] MEDS ORDERED: PRENATAL VITAMIN TABLET PO SCH (07:00)
--- NOTE | 2023-04-01 07:26 | Postpartum Progress Note ---
Note Note Day # 1 Subjective: Patient is without complaints. Ambulating, voiding. Tolerating a regular diet without nausea or vomiting. Normal lochia. Pain is well controlled with oral pain medications. Objective: Physical Exam: General - Alert and oriented, no apparent distress Abdomen - Soft, appropriately tender to palpation, non-distended, fundus firm at umbilicus Extremities - no edema, negative Jarad's bilaterally Assessment: PPD 1 NVD Plan: Routine care. Encourage breast feeding. Encourage ambulation. Ferrous sulfate supplementation. Plan for discharge today Vitals - Labs Vital Signs - I&O Vital Signs Date Time Temp Pulse Resp B/P (MAP) Pulse Ox O2 Delivery O2 Flow Rate FiO2 04/01/23 04:00 36.6 64 18 135/82 (99) 100 Room Air 04/01/23 01:19 36.6 62 18 117/78 (91) 100 Room Air 03/31/23 21:41 36.7 67 18 135/89 (104) 99 Room Air 03/31/23 18:00 36.1 74 18 139/74 (95) 99 Room Air 03/31/23 16:29 36.3 78 18 138/85 (102) Room Air 03/31/23 16:27 127 18 148/96 (113) Room Air 03/31/23 16:15 73 18 141/76 (97) Room Air 03/31/23 16:00 36.2 68 18 135/70 (91) Room Air 03/31/23 15:45 68 18 150/90 (110) Room Air 03/31/23 15:30 62 18 132/78 (96) Room Air 03/31/23 15:15 68 18 145/89 (107) Room Air 03/31/23 15:00 68 18 139/82 (101) Room Air 03/31/23 14:45 73 18 146/89 (108) Room Air 03/31/23 14:30 35.2 77 18 142/84 (103) Room Air 03/31/23 14:15 81 18 140/89 (106) Room Air 03/31/23 14:00 67 18 135/87 (103) Room Air 03/31/23 13:30 81 18 132/82 (99) Room Air 03/31/23 13:15 96 18 125/90 (102) Room Air 03/31/23 13:00 77 18 124/68 (86) Room Air 03/31/23 12:45 71 18 126/66 (86) Room Air 03/31/23 12:30 36.4 81 18 121/81 (94) Room Air 03/31/23 12:15 76 18 130/63 (85) Room Air 03/31/23 12:00 91 18 132/68 (89) Room Air 03/31/23 11:45 75 18 127/79 (95) Room Air 03/31/23 11:30 36.3 75 18 147/86 (106) Room Air 03/31/23 11:15 72 18 144/100 (115) Room Air 03/31/23 11:00 36.0 67 18 146/76 (99) Room Air 03/31/23 10:45 91 18 124/83 (97) Room Air 03/31/23 10:30 36.1 71 18 130/89 (103) Room Air 03/31/23 10:15 69 18 121/66 (84) Room Air 03/31/23 10:00 76 18 125/73 (90) Room Air 03/31/23 09:45 77 18 113/64 (80) Room Air 03/31/23 09:30 71 18 137/83 (101) Room Air 03/31/23 09:15 74 18 131/80 (97) Room Air 03/31/23 09:00 81 18 131/80 (97) Room Air 03/31/23 08:45 75 18 130/92 (105) Room Air 03/31/23 08:40 78 18 131/75 (93) 99 Room Air 03/31/23 08:00 86 18 132/92 (105) 98 Room Air 03/31/23 07:45 90 18 123/69 (87) 99 Room Air 03/31/23 07:30 35.7 73 18 127/77 (94) Room Air 03/31/23 07:30 35.7 73 18 98 Room Air I & O 04/01/23 07:00 Intake Total 3050 ml Balance 3050 ml BOLA GONZALES DO Apr 01, 2023 07:26
--- NOTE | 2023-04-01 07:27 | Discharge Inst-Women's Service ---
Discharge Inst-Women's Serv Depart Medication/Instructions New, Converted or Re-Newed RX: Transmitted to Pharmacy Final Diagnosis PPD 1 NVD Problems Reviewed?: Yes Consults/Follow Up Additional Follow Up: Yes Orders/Referrals Dr. Gonzales in 6 weeks Activity Activity: Activity as Tolerated Driving Instructions: No Driving for 1 Week NO SMOKING: NO SMOKING Nothing Inside Vagina: No Douching, No [place], No Tampons Diet Discharge Diet: No Restrictions Symptoms to Report to : Bleeding Excessive, Pain Increased, Fever Over 101 Degrees F, Vaginal Bleeding Increase, Questions/Concerns For Any Problems or Questions: Contact Your Physician BOLA GONZALES DO Apr 01, 2023 07:27
[2023-04-01] MEDS ORDERED: ACET-93 PO (07:28)
[2023-04-01] MEDS ORDERED: DOCU100C37 PO (07:28)
[2023-04-01] MEDS ORDERED: DIBU30OI TOP (07:28)
[2023-04-01] MEDS ORDERED: FERR325T24 PO (07:28)
[2023-04-01] MEDS ORDERED: BENZ78AE5 TP (07:28)
[2023-04-01] MEDS ORDERED: IBUP-844 PO (07:28)
[2023-04-01 07:47] LABS: BASOPHILS % (AUTO) 0 % (0-10); EOSINOPHILS # (AUTO) 0.1 10^3/uL (0.0-0.3); EOSINOPHILS % (AUTO) 1 % (0-10); HEMATOCRIT 30 % (35-52); HEMOGLOBIN 9.9 g/dL (11.5-16.0); LYMPHOCYTES # (AUTO) 1.7 10^3/uL (1.0-4.0); LYMPHOCYTES % (AUTO) 17 % (12-44); MEAN CORPUSCULAR HEMOGLOBIN 28 pg (25-34); MEAN CORPUSCULAR HGB CONC 33 g/dL (32-36); MEAN CORPUSCULAR VOLUME 87 fL (80-99); MEAN PLATELET VOLUME 10.9 fL (9.0-12.2); MONOCYTES % (AUTO) 9 % (0-12); NEUTROPHILS # (AUTO) 7.5 10^3/uL (1.8-7.8); NEUTROPHILS % (AUTO) 73 % (42-75); PLATELET COUNT 167 10^3/uL (130-400); WHITE BLOOD COUNT 10.3 10^3/uL (4.3-11.0)
[2023-04-01 08:50] VITALS: BP 134/75
[2023-04-01] MEDS: ACETAMINOPHEN 500 MG TABLET PO PRN ×2 (08:52→17:47)
[2023-04-01] MEDS: DOCUSATE SODIUM 100 MG CAPSULE PO SCH (08:52)
[2023-04-01] MEDS ORDERED: FERROUS SULFATE 325 MG (IRON) TABLET PO SCH (09:00)
[2023-04-01 13:30] VITALS: BP 127/88
== END 2023-04-01 18:20 | disposition home or self-care (01) | DRG 807 ==
LOC: LDRP 06:15
PROVIDERS: ADMIT Obstetrics & Gynecology; ATTEND Obstetrics & Gynecology
PROC: 10E0XZZ Delivery of Products of Conception, External Approach (ICD-10-PCS; principal; 2023-03-31)
PROC: 0W8NXZZ Division of Female Perineum, External Approach (ICD-10-PCS; 2023-03-31)
PROC: 10907ZC Drainage of Amniotic Fluid, Therapeutic from Products of Conception, Via Natural or Artificial Opening (ICD-10-PCS; 2023-03-31)
DX: O48.0 Post-term pregnancy (principal); Z37.0 Single live birth; O99.824 Streptococcus B carrier state complicating childbirth; Z3A.40 40 weeks gestation of pregnancy
CPT/HCPCS: 36415; 85025; 86780; 86850; 86900; 86901